=== PATIENT | female | born 1965 | race Two or more races ===

== ENCOUNTER 2017-08-18 10:41 | Emergency (ER) | payer SELFPAY ==
[2017-08-18 11:13] LABS: ADD MAN DIFF? NO
[2017-08-18 11:26] LABS: ANION GAP 19 (6-14); BLOOD UREA NITROGEN 17 mg/dL (7-20); BUN/CREATININE RATIO 21 (6-20); CALCIUM 9.9 mg/dL (8.5-10.1); CARBON DIOXIDE 19 mmol/L (21-32); CHLORIDE 102 mmol/L (98-107); CREATININE 0.8 mg/dL (0.6-1.0); GFR 75.9; GLUCOSE 202 mg/dL (70-99); POTASSIUM 4.1 mmol/L (3.5-5.1); SODIUM 140 mmol/L (136-145)
[2017-08-18 11:31] LABS: ALBUMIN 4.2 g/dL (3.4-5.0); ALBUMIN/GLOBULIN RATIO 1.1 (1.0-1.7); ALK PHOS 97 U/L (46-116); ALT (SGPT) 46 U/L (14-59); AST (SGOT) 23 U/L (15-37); TOTAL BILIRUBIN 0.4 mg/dL (0.2-1.0); TOTAL PROTEIN 7.9 g/dL (6.4-8.2)
[2017-08-18 11:34] LABS: BASO # 0.1 x10^3/uL (0.0-0.2); BASO % 1 % (0-3); EOS # 0.1 x10^3/uL (0.0-0.7); EOS % 2 % (0-3); HEMATOCRIT 43.4 % (36.0-47.0); HEMOGLOBIN 15.4 g/dL (12.0-15.5); LYMPH # 2.9 x10^3/uL (1.0-4.8); LYMPH % 42 % (24-48); MEAN CORPUSCULAR HEMOGLOBIN 32 pg (25-35); MEAN CORPUSCULAR HGB CONC 36 g/dL (31-37); MEAN CORPUSCULAR VOLUME 91 fL (79-100); MONO # 0.5 x10^3/uL (0.0-1.1); MONO % 8 % (0-9); NEUT # 3.2 x10^3uL (1.8-7.7); NEUT % 48 % (31-73); PLATELET COUNT 186 x10^3/uL (140-400); RED CELL DISTRIBUTION WIDTH 13.1 % (11.5-14.5); WHITE BLOOD COUNT 6.8 x10^3/uL (4.0-11.0)
[2017-08-18 11:36] LABS: TROPONINI < 0.017 ng/mL (0.000-0.055)
[2017-08-18 11:40] LABS: NT-PRO BNP 24 pg/mL (0-124)
[2017-08-18 11:40] LABS: CKMB INDEX 0.7 % (0-4); CKMB MASS 0.8 ng/mL (0.0-3.6); CREATINE KINASE 107 U/L (26-192)
[2017-08-18] MEDS: ASPIRIN CHEWABLE 81 MG TABLET. PO (12:31)
[2017-08-18 12:56] LABS: PLT ESTIMATE ADEQUATE (ADEQUATE)
== END 2017-08-18 13:43 | disposition home or self-care (01) ==
LOC: ER 10:41
DX: R07.89 Other chest pain (principal); F41.0 Panic disorder [episodic paroxysmal anxiety]; R06.4 Hyperventilation; E11.9 Type 2 diabetes mellitus without complications; F17.210 Nicotine dependence, cigarettes, uncomplicated
CPT/HCPCS: 36415; 71045; 80053; 82553; 83880; 84484; 85025; 93005; 96374; 99285-25; J2060